=== PATIENT | male | born 1990 | race Caucasian/White ===

== ENCOUNTER 2020-01-27 11:31 | Emergency (ER) | payer OTHER ==
[~2020-01-27] VITALS: Ht 188 cm; Wt 93.0 kg
[~2020-01-27 11:31] MED LIST: AMBIEN 5 MG TABL5 M1; BACTRIM DS TAB1 EACH PO; ESKALITH300 MG; KEFLEX500 MG; LAMICTAL100 MG; NOHOMEMEDICATIONS; PREDNISONE 10 M10 MG PO
[2020-01-27 11:36] VITALS: BP 121/71
[2020-01-27] MEDS ORDERED: RISPERIDONE1 MG PO (11:40)
[2020-01-27] MEDS ORDERED: XANAX 0.5 MG0.5 MG PO (11:40)
--- NOTE | 2020-01-28 13:44 | EKG ---
[place] [address] ELECTROCARDIOGRAM REPORT Name: CARLOS SAINZ Room: [facility]#: [id number] Admission: 01/27/20 Attend Phys: Discharge: 01/27/20 Date of : 86 Date of Service: 01/27/20 1137 Report #: [id number] THIS REPORT FOR: //name// [facility] ED Test Date: 2020-01-27 Test Time: 11:37:06 Pat Name: CARLOS SAINZ Department: Room: Gender: Operating Systems Programmer: : 1990 Requested By: Ajit Johnson Order Number: [id number] Reading MD: Nasir Malhotra Measurements Intervals [place] Rate: 88 P: 71 NM: 145 QRS: 118 QRSD: 94 T: 63 QT: 362 QTc: 438 Interpretive Statements Sinus rhythm Right axis deviation ST elev, probable normal early repol pattern Baseline wander in lead(s) V2,V6 Compared to ECG 03/05/2011 00:36:52 no change Electronically Signed On 01-28-2020 13:43:50 CDT by Nasir Malhotra [email or web address] <ELECTRONICALLY SIGNED> By: Nasir Malhotra MD, FACC 01/28/20 1343 1137 1137 Nasir Malhotra MD, [facility] /EPI
== END 2020-01-27 11:50 | disposition left against medical advice (07) ==
LOC: M.ERS 11:31
DX: J39.2 Other diseases of pharynx (principal)

== ENCOUNTER 2020-07-02 19:21 | Emergency (ER) | payer OTHER ==
[~2020-07-02] VITALS: Ht 177.8 cm; Wt 90.3 kg
[~2020-07-02 19:21] MED LIST changes: +RISPERIDONE1 MG PO; +XANAX 0.5 MG0.5 MG PO
[2020-07-02 20:04] LABS: ABSOLUTE BASOPHILS 0.1 thou/uL (0.0-0.2); ABSOLUTE EOSINOPHILS 0.1 thou/uL (0.0-0.7); ABSOLUTE LYMPHOCYTES 2.4 thou/uL (0.8-5.3); ABSOLUTE MONOCYTES 1.1 thou/uL (0.0-1.2); ABSOLUTE NEUTROPHILS 5.1 thou/uL (1.6-8.1); BASOPHILS 0.8 %; EOSINOPHILS 0.8 %; HEMATOCRIT 40.3 % (42.0-52.0); HEMOGLOBIN 14.1 gm/dL (14.0-18.0); LYMPHOCYTES 27.4 %; MCH 31.3 pg (26.0-34.0); MCV 89.7 fL (80.0-100.0); MONOCYTES 12.3 %; NUCLEATED RBCS 0 /100WBC; PLATELET COUNT* 180 thou/uL (150-400); POLYS 58.7 %; RBC 4.49 mil/uL (4.50-6.00); WBC 8.7 thou/uL (4.0-11.0)
[2020-07-02 20:10] LABS: POTASSIUM 3.1 mmol/L (3.5-5.1)
[2020-07-02 20:22] LABS: SALICYLATE < 2.8 mg/dL (2.8-20.0)
[2020-07-02 20:27] LABS: ACETAMINOPHEN < 2 ug/mL (10-30)
[2020-07-02 20:27] LABS: URINE BILIRUBIN NEGATIVE (Negative); URINE BLOOD NEGATIVE (Negative); URINE CLARITY CLEAR; URINE COLOR YELLOW; URINE GLUCOSE-RANDOM NEGATIVE (Negative); URINE KETONES NEGATIVE (Negative); URINE LEUKOCYTES-REFLEX NEGATIVE (Negative); URINE NITRITE-REFLEX NEGATIVE (Negative); URINE PROTEIN NEGATIVE (Negative); URINE UROBILINOGEN 0.2 E.U./dl (0.2-1.0)
[2020-07-02 20:37] LABS: AMP/METHAMP POSITIVE (Negative); BARBITURATES Negative (Negative); BENZODIAZEPINES POSITIVE (Negative); COCAINE Negative (Negative); METHADONE Negative (Negative); OPIATES POSITIVE (Negative); PCP Negative (Negative); THC Negative (Negative)
[2020-07-03 02:50] VITALS: BP 132/72
== END 2020-07-03 02:50 | disposition home or self-care (01) ==
LOC: M.ERS 19:21
PROVIDERS: Nurse Practitioner
DX: F10.920 Alcohol use, unspecified with intoxication, uncomplicated (principal); F19.10 Other psychoactive substance abuse, uncomplicated; F31.9 Bipolar disorder, unspecified; F17.210 Nicotine dependence, cigarettes, uncomplicated; Z98.890 Other specified postprocedural states

== ENCOUNTER 2020-07-21 17:28 | Emergency (ER) | payer OTHER ==
[~2020-07-21] VITALS: Ht 182.9 cm; Wt 90.7 kg
[2020-07-21 18:42] LABS: ABSOLUTE BASOPHILS 0.1 thou/uL (0.0-0.2); ABSOLUTE LYMPHOCYTES 2.8 thou/uL (0.8-5.3); ABSOLUTE MONOCYTES 0.4 thou/uL (0.0-1.2); ABSOLUTE NEUTROPHILS 4.6 thou/uL (1.6-8.1); BASOPHILS 1.2 %; EOSINOPHILS 0.3 %; HEMATOCRIT 52.5 % (42.0-52.0); HEMOGLOBIN 18.1 gm/dL (14.0-18.0); LYMPHOCYTES 35.2 %; MCH 31.6 pg (26.0-34.0); MCHC 34.5 g/dL (28.0-37.0); MCV 91.8 fL (80.0-100.0); MPV 7.9 fl. (7.2-11.1); NUCLEATED RBCS 0 /100WBC; PLATELET COUNT* 343 thou/uL (150-400); POLYS 58.3 %; RBC 5.72 mil/uL (4.50-6.00); RDW-CV 16.3 % (10.5-14.5); WBC 7.8 thou/uL (4.0-11.0)
[2020-07-21 18:43] LABS: URINE BILIRUBIN NEGATIVE (Negative); URINE BLOOD TRACE (Negative); URINE CLARITY CLEAR; URINE COLOR YELLOW; URINE GLUCOSE-RANDOM NEGATIVE (Negative); URINE KETONES NEGATIVE (Negative); URINE LEUKOCYTES-REFLEX NEGATIVE (Negative); URINE NITRITE-REFLEX NEGATIVE (Negative); URINE PROTEIN NEGATIVE (Negative); URINE UROBILINOGEN 0.2 E.U./dl (0.2-1.0)
[2020-07-21 18:50] LABS: CALCIUM 8.7 mg/dL (8.5-10.1); CREATININE 0.9 mg/dL (0.6-1.3); POTASSIUM 3.9 mmol/L (3.5-5.1)
[2020-07-21 18:54] LABS: AMP/METHAMP Negative (Negative); BARBITURATES Negative (Negative); BENZODIAZEPINES Negative (Negative); COCAINE Negative (Negative); METHADONE Negative (Negative); OPIATES Negative (Negative); PCP Negative (Negative); THC Negative (Negative)
[2020-07-21 18:55] LABS: ALBUMIN 4.1 g/dL (3.4-5.0); TOTAL BILIRUBIN 0.8 mg/dL (<0.1-1.0); TOTAL PROTEIN 8.5 g/dL (6.4-8.2)
[2020-07-21 19:04] LABS: ACETAMINOPHEN < 2 ug/mL (10-30); ALCOHOL 289 mg/dL (<10); SALICYLATE 3.2 mg/dL (2.8-20.0)
[2020-07-21 22:16] VITALS: BP 122/87
== END 2020-07-21 22:16 | disposition home or self-care (01) ==
LOC: M.ERS 17:28
PROVIDERS: Family Medicine
DX: F10.129 Alcohol abuse with intoxication, unspecified (principal); F17.210 Nicotine dependence, cigarettes, uncomplicated; Y90.8 Blood alcohol level of 240 mg/100 ml or more

== ENCOUNTER 2021-02-15 15:59 | Emergency (ER) | payer OTHER ==
[~2021-02-15] VITALS: Ht 188 cm; Wt 90.7 kg
[2021-02-15] MEDS ORDERED: IBU600 MG PO (17:18)
[2021-02-15] MEDS ORDERED: AUGMENTIN 875-1 EACH PO (17:18)
[2021-02-15 17:29] VITALS: BP 112/70
== END 2021-02-15 17:31 | disposition home or self-care (01) ==
LOC: M.ERS 15:59
DX: S57.81XA Crushing injury of right forearm, initial encounter (principal); I10 Essential (primary) hypertension; F31.9 Bipolar disorder, unspecified; F17.210 Nicotine dependence, cigarettes, uncomplicated; Z98.890 Other specified postprocedural states; W54.0XXA Bitten by dog, initial encounter; Y93.89 Activity, other specified; Y92.89 Other specified places as the place of occurrence of the external cause; Y99.8 Other external cause status